=== PATIENT | female | born 1955 | race Caucasian/White ===

== ENCOUNTER 2016-05-23 02:05 | Observation (INO) | payer OTHER ==
[~2016-05-23] VITALS: Ht 157.5 cm; Wt 81.6 kg
[~2016-05-23 02:05] MED LIST: GLUCOPHAGE850 MG PO; TOPROL XL25 MG PO; ZOCOR10 MG PO
[2016-05-23] MEDS ORDERED: LISINOPRIL-HCT1 EAC2 PO (03:48)
[2016-05-23] MEDS ORDERED: NEXIUM40 MG PO (03:48)
[2016-05-23] MEDS ORDERED: VITAMIN E400 UNI2 PO (03:49)
== END 2016-05-23 14:20 | disposition short-term general hospital (02) ==
LOC: ER 02:05 → OBS 04:30 → IP 04:30
PROVIDERS: ADMIT Family Medicine
DX: R10.9 Unspecified abdominal pain (principal); Z88.1 Allergy status to other antibiotic agents; Z88.2 Allergy status to sulfonamides; Z88.8 Allergy status to other drugs, medicaments and biological substances; Z91.041 Radiographic dye allergy status; Z79.899 Other long term (current) drug therapy; Z90.49 Acquired absence of other specified parts of digestive tract; Z90.722 Acquired absence of ovaries, bilateral; Z98.890 Other specified postprocedural states
CPT/HCPCS: G0378; J1170; J2405; J8499

== ENCOUNTER → 2016-05-26 | Outpatient (CLI) | payer OTHER ==
[~2016-05-26] MED LIST changes: +LISINOPRIL-HCT1 EAC2 PO; +NEXIUM40 MG PO; +VITAMIN E400 UNI2 PO
== END | disposition short-term general hospital (02) ==
LOC: CLSURG 08:10
DX: K80.20 Calculus of gallbladder without cholecystitis without obstruction (principal); R14.0 Abdominal distension (gaseous)